=== PATIENT | female | born 1975 | race Caucasian/White ===

== ENCOUNTER 2017-09-11 04:08 | Emergency (ER) | payer OTHER ==
--- NOTE | 2017-09-11 04:40 | ED ---
Abdominal Pain/Female - HPI Summary HPI Summary: Pt is a 41 y/o F c/o abdominal pain onsetting . Pain is located in the epigastric region radiating to the mid sternum. She notes she had bariatric surgery ~3 weeks ago. Associated Sx: Gas (burping), diarrhea, low-grade fever ( 99.6), chills. Pt notes that she ate some soup last night and experienced diarrhea following consumption. Pt took Gas-X in attempt to alleviate symptoms and notes Sx resolved CONSTRUCTION MGR. - History of Current Complaint Chief Complaint: EDAbdPain Stated Complaint: ABD PAIN Time Seen by Provider: 09/11/17 04:24 Hx Obtained From: Patient Hx Last Menstrual Period: 04/13/14 Onset/Duration: Resolved Timing: Minutes Severity Initially: Mild Severity Currently: None Pain Intensity: 3 Pain Scale Used: 0-10 Numeric Location: Epigastric Radiates: Yes Radiates to: Chest Associated Signs and Symptoms: Positive: Fever, Chest Pain, Diarrhea, Other: - chills Allergies/Adverse Reactions: Allergies Allergy/AdvReac Type Severity Reaction Status Date / Time Sulfa (Sulfonamide Allergy Headache Verified 09/11/17 04:21 Antibiotics) PMH/Surg Hx/FS Hx/Imm Hx Endocrine/Hematology History: Denies: Hx Diabetes, Hx Thyroid Disease Cardiovascular History: Denies: Hx Hypertension Respiratory History: Denies: Hx Asthma, Hx Chronic Obstructive Pulmonary Disease (COPD) GI History: Denies: Hx Ulcer - Cancer History Hx Chemotherapy: No Hx Radiation Therapy: No Infectious Disease History: No Infectious Disease History: Reports: Traveled Outside the [place] in Last 30 Days - [place] Denies: Hx Hepatitis, Hx Human Immunodeficiency Virus (HIV) - Family History Known Family History: Negative: Cardiac Disease, Hypertension, Diabetes - Social History Occupation: Employed Part-time Lives: With Family Alcohol Use: None Substance Use Type: Reports: None Smoking Status (MU): Never Smoked Tobacco Review of Systems Positive: Fever, Chills Positive: Chest Pain Positive: Abdominal Pain, Diarrhea, Other - "gassy" All Other Systems Reviewed And Are Negative: Yes Physical Exam - Summary Physical Exam Summary: Appearance: Well-appearing, Well-nourished, lying in bed comfortably Skin: Warm, dry, no obvious rash Eyes: sclera anicteric, no conjunctival pallor ENT: mucous membranes moist, pharynx appears normal Neck: Supple, nontender Respiratory: Clear to auscultation, no signs of respiratory distress Cardiovascular: Normal S1, S2. No murmurs. Normal distal pulses in tibial and radial bilaterally. Abdomen: Soft, nontender, normal active bowel sounds present Musculoskeletal: Normal, Strength/ROM Intact Neurological: A&Ox3, awake and alert, mentation is normal, speech is fluent and appropriate Psychiatric: affect is normal, does not appear anxious or depressed Triage Information Reviewed: Yes Vital Signs On Initial Exam: Initial Vitals Temp Pulse Resp BP Pulse Ox 97.2 F 96 16 114/81 98 09/11/17 04:13 09/11/17 04:13 09/11/17 04:13 09/11/17 04:13 09/11/17 04:13 Vital Signs Reviewed: Yes Diagnostics - Vital Signs Vital Signs Temp Pulse Resp BP Pulse Ox 09/11/17 04:17 98 114/81 97 09/11/17 04:13 97.2 F 96 16 114/81 98 - Laboratory Result Diagrams: 09/11/17 04:55 09/11/17 04:55 Lab Statement: Any lab studies that have been ordered have been reviewed, and results considered in the medical decision making process. Abdominal Pain Fem Course/Dx - Course Course Of Treatment: Pain has resolved and has not recurred during a short period of observation in the emergency department. Her routine screening lab studies are unremarkable. I believe the patient is stable to be discharged and she can follow up with her bariatric team. - Diagnoses Provider Diagnoses: Acute abdominal pain Discharge - Sign-Out/Discharge Documenting (check all that apply): Patient Departure - Discharge Plan Condition: Good Disposition: HOME Patient Education Materials: Acute Abdominal Pain (ED) Referrals: Eleazar Du MD [Primary Care Provider] - Additional Instructions: Please contact your bariatric team later this morning to let them know what happened tonight. Your blood work did not show any sign of a serious problem. - Billing Disposition and Condition Condition: GOOD Disposition: Home
[2017-09-11 05:02] LABS: ABS Basophils 0 10^3/ul (0-0.2); ABS Eosinophils 0 10^3/ul (0-0.6); ABS Lymphocytes 0.3 10^3/ul (1.0-4.8); ABS Monocytes 0.5 10^3/ul (0-0.8); ABS Neutrophils 8.4 10^3/ul (1.5-7.7); ABS Nucleated RBC 0 10^3/ul; Eosinophil % 0.3 % (0-6); Hematocrit 38 % (35-47); Hemoglobin 12.9 g/dl (12.0-16.0); Lymphocyte % 3.1 % (25-47); Mean Corpuscular HGB Conc 34 g/dl (31-36); Mean Corpuscular Hemoglobin 29 pg (27-31); Mean Corpuscular Volume 85 fL (80-97); Mean Platelet Volume 8.8 um3 (7.4-10.4); Nucleated Red Blood Cells % 0; Platelet Count 229 10^3/ul (150-450); Red Blood Count 4.44 10^6/ul (4.00-5.40); Red Cell Distribution Width 13 % (10.5-15); White Blood Count 9.2 10^3/ul (3.5-10.8)
[2017-09-11 05:21] LABS: EGFR Non-African American 72.1 (>60)
[2017-09-11 05:38] VITALS: BP 123/82
== END 2017-09-11 05:38 | disposition home or self-care (01) ==
LOC: ED 04:08
DX: R10.13 Epigastric pain (principal); R14.2 Eructation; R19.7 Diarrhea, unspecified; R50.9 Fever, unspecified; Z98.84 Bariatric surgery status; Z88.2 Allergy status to sulfonamides
CPT/HCPCS: 36415; 80048; 85025; 99282